=== PATIENT | female | born 1990 | race Caucasian/White ===

== ENCOUNTER 2017-09-21 17:12 | Emergency (ER) | payer OTHER ==
[2017-09-21 18:20] LABS: microscopic required? YES; urine erythrocyte 2+ (NEGATIVE)
[2017-09-21 18:31] LABS: BASOPHIL % 0.4 % (0-2); PLATELET COUNT 199 x10^3mcL (130-400); RED CELL DISTRIBUTION WIDTH 13.1 % (11.5-14.5)
[2017-09-21 20:40] VITALS: BP 128/64
== END 2017-09-21 20:40 | disposition home or self-care (01) ==
LOC: ED 17:12
PROVIDERS: Emergency Medicine
PROC: BY4CZZZ Ultrasonography of Second Trimester, Single Fetus (ICD-10-PCS; principal; 2017-09-21)
DX: Z34.02 Encounter for supervision of normal first pregnancy, second trimester (principal); N93.9 Abnormal uterine and vaginal bleeding, unspecified; F17.210 Nicotine dependence, cigarettes, uncomplicated
CPT/HCPCS: 36415; 99406; Q0092